=== PATIENT | male | born 1990 | race Asian ===

== ENCOUNTER 2018-07-20 12:55 | Emergency (ER) | payer MEDICAID ==
[~2018-07-20] VITALS: Ht 165.1 cm; Wt 66.8 kg
[2018-07-20 14:53] VITALS: BP 159/71
== END 2018-07-20 15:00 | disposition home or self-care (01) ==
LOC: EMS 12:57
DX: L03.116 Cellulitis of left lower limb (principal); B35.3 Tinea pedis